=== PATIENT | male | born 1940 | race Caucasian/White ===

== ENCOUNTER → 2018-11-26 | Outpatient (CLI) | payer MEDICARE, BC ==
--- NOTE | 2018-11-26 13:55 | US ---
LOWER EXTREMITY VENOUS INSUFFICIENCY SIDE PERFORMED: Bilateral 1) Color flow is present and patency is documented in the following vessels. No DVT or SVT is noted . EIV Common Femoral Vein Deep Femoral Vein Femoral Vein Popliteal Vein Proximal Calf Veins Greater Saph Vein Upper Small Saph Vein 2) There is venous reflux noted at the following venous levels: Right: EIV, FV dist, pop prox, prox distal. Left: EIV, GSV, CFV, DFV, FV prox mid and distal, pop prox and mid. IMPRESSION: 1. Venous reflux within the left and right lower extremities discussed above
--- NOTE | 2018-12-01 09:17 | P.ARTDOP ---
Arterial Doppler LOWER EXTREMITY ARTERIAL DOPPLER: DATE OF SERVICE: 11/26/2018 Reason for study: Bilateral foot discoloration. Doppler waveforms: Multiphasic bilaterally throughout. Pulse volume recording: []. Pressure gradients: None. Ankle-brachial indices: Can't occlude either ankle. Toe pressures: 105 on the right, 117 on the left Impression: Normal study flow. Possible calcific wall disease of no hemodynamic significance..
== END | disposition home or self-care (01) ==
LOC: RADUSWWP 12:16
PROVIDERS: ATTEND Nuclear Medicine Nuclear Cardiology
DX: I87.309 Chronic venous hypertension (idiopathic) without complications of unspecified lower extremity (principal)
CPT/HCPCS: 93922; 93923; 93970